=== PATIENT | female | born 1950 | race Caucasian/White ===

== ENCOUNTER 2021-09-21 18:16 | Observation (INO) | payer MEDICARE, SELFPAY ==
[2021-09-21 18:27] VITALS: BMI 23.8
[2021-09-21 18:35] VITALS: BP 146/74; PULSE 81; RESP 17; TEMP 36.8; O2SAT 100
--- NOTE | 2021-09-21 18:36 | P.HP_ITS ---
History of Present Illness History of Present Illness Date Patient Seen: 09/21/21 Time Patient Seen: 18:36 Chief complaint: Vaginal Bleeding Narrative: Patient is a 71-year-old 2 para 2 who called the office earlier this afternoon with brisk vaginal bleeding where she was soaking a pad in 2 minutes. 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 She is scheduled to see [facility] on September 25, 2021 in [place]. Hemoglobin in the office 9.0. Only previous hematocrit that I can find shows 36. Patient History Medical History (Updated 09/21/21 @ 18:34 by Deepa Henriquez MD) History of hepatitis A History of renal stone HSV (herpes simplex virus) infection Vitiligo Surgical History (Updated 09/21/21 @ 18:43 by Deepa Henriquez MD) Hx laparoscopic cholecystectomy S/P tonsillectomy and adenoidectomy S/P wisdom tooth extraction Status post appendectomy Family & Social History Family History (Updated 09/09/21 @ 01:[address] MD) Father Cancer Tobacco & Substance use: Smoking Status Former smoker Meds Home Medications and Allergies Home Medications Medication Instructions Recorded Confirmed Type No Known Home Medications 09/04/21 09/04/21 History Allergies Allergy/AdvReac Type Severity Reaction Status Date / Time No Known Drug Allergies Allergy Unverified 09/04/21 14:09 Exam Narrative Exam Narrative: Generally: Pale elderly female, no acute distress Lungs: Clear to auscultation bilaterally Cardiovascular: Regular rate and rhythm Abdomen: Well-healed right upper quadrant scars. No masses palpable. No hepatosplenomegaly. External genitalia: Old blood Vagina: Large amount of clot and brisk bleeding coming from the cervix Cervix: Irregular, friable, with brisk bleeding Procedure: Large swabs were applied to the cervix and then Monsel's was applied. The bleeding slowed and then the vagina was packed with 1 in iodoform gauze that was dipped in Monsel solution. The bleeding stopped. Extremities: No edema Assessment & Plan Assessment & Plan narrative: Assessment: 71-year-old 2 para 2 with active bleeding from the cervix Cervical cancer Plan: Observation Covarrubias catheter The packing in place for at least 12 hours COVID-19 COVID-19 status: Result pending Time Spent With Patient Time with patient: 50 to 69 minutes with 50% spent counseling/coordinating care Critical Care time: I spent a total of [] minutes of critical care time on this patient's care today; this time is exclusive of procedural time.
--- NOTE | 2021-09-21 19:34 | PC.NURSE ---
182 71 y/o female admitted from 's office with vaginal CA, with vaginal packing, patient alert and oriented x3, denies any pain or discomfort,does not recall when she last had a bowel movement,lungs clear to auscultation,pedal pulse pres
--- NOTE | 2021-09-21 19:38 | CM.MNRNOTE ---
71 y/o female admitted for observation,alert and oriented x3,denies any pain or discomfort,came from 's office after vaginal packing r/t to vaginal CA and bleeding.Bilateral lungs clear to auscultation, pedal pulse present, no edema noted,does not remember when she last has a bowel movemnet, Has Hx of gallbladder surgery, has arthritis.VSS. O2 sat 100%.VSS.Covarrubias catheter inserted with urine return,approximately 100 cc yellow urine,SCD's in place.Call light beside her,reminded her to call as needed. Gave report to RAMA Jackson.
[2021-09-21 20:11] LABS: COVID19 -Nasal RAPID Negative (Negative)
[2021-09-21 20:26] VITALS: BP 120/72; PULSE 86; RESP 18; TEMP 36.7; O2SAT 98
[2021-09-21 21:14] LABS: Add Manual Diff / Slide Review NO; Basophils Absolute Auto 100 /uL (0-100); Basophils Percent Auto 1.2 % (0-2); Eosinophils Absolute Auto 200 /uL (0-450); Eosinophils Percent Auto 2.7 % (2-4); Hematocrit 29.5 % (36-46); Hemoglobin 9.9 g/dL (12.0-16.0); Lymphocytes Absolute Auto 1800 /uL (1100-4500); Mean Corpuscular HGB Conc 33.7 % (30-36); Mean Corpuscular Hemoglobin 24.8 PG (26-34); Mean Corpuscular Volume 73.7 fL (80-100); Monocytes Absolute Auto 600 /uL (0-900); Monocytes Percent Auto 7.4 % (3-14); Neutrophils Absolute Auto 5900 /uL (1500-7000); Neutrophils Percent Auto 67.7 % (50-75); Platelet Count 226 X10^3/uL (150-400); Red Blood Cell Count 4.01 X10^6/uL (4.0-5.2); Red Cell Distribution Width 15.8 % (11.6-14.8); White Blood Cell Count 8.6 X10^3/uL (4.5-11.0)
[2021-09-21 23:20] VITALS: BP 128/65; PULSE 82; RESP 18; TEMP 36.7; O2SAT 97
[2021-09-22 04:42] VITALS: BP 119/61; PULSE 86; RESP 18; TEMP 37.2; O2SAT 97
--- NOTE | 2021-09-22 07:32 | PC.NURSE ---
received report from Renetta ONTIVEROS traveler-pt stable alba in place-no IV-no pain-Dr. Henriquez to come this AM and remove vaginal packing and DC-gen diet labs drawn last night WNL
[2021-09-22 10:40] VITALS: BP 110/65; PULSE 91; RESP 18; TEMP 37.1; O2SAT 95
--- NOTE | 2021-09-22 10:42 | PC.NURSE ---
0941-spoke w Dr. Henriquez via phone who will be on unit later this AM to assess pt and remove packing
[2021-09-22 14:00] VITALS: BP 124/70; RESP 19; TEMP 36.9
--- NOTE | 2021-09-22 14:10 | PC.NURSE ---
spoke to Dr. Henriquez POC for pt to have alba out removed @0150 & walk in the room-pt has been up 2 times for 20 minutes each with scant light pink bleeding-tires easily-pt to call her son for ride home-This RN explained if any bleeding occurs to come back to hospital/notify construction equipment operator OB provider. All vitals WNL
[2021-09-22 14:45] LABS: Hematocrit 28.9 % (36-46); Hemoglobin 9.8 g/dL (12.0-16.0)
--- NOTE | 2021-09-22 15:57 | PC.NURSE ---
orthostatic pressures @1500 lying 136/69 [id number] 129/68 P97 Sitting 137/69 P105 Temp 98.4 temporal-reported to Dr. Henriquez-Pt OK to [facility]-pt in room dressed waiting for her son to pick her up
--- NOTE | 2021-09-23 10:26 | P.DS_ITS ---
History of Present Illness History of Present Illness Date Patient Seen: 09/22/21 Time Patient Seen: 13:00 Chief complaint: Vaginal Bleeding Narrative: Patient is a 71-year-old 2 para 2 who called the office yesterday afternoon with brisk vaginal bleeding where she was soaking a pad in 2 minutes. She had had cervical biopsies done on September 04, 2021 which showed carcinoma in Situ and invasive squamous cell carcinoma of the cervix. She is scheduled to see [facility] on September 25, 2021 in [place]. Patient was packed with iodoform Nu Gauze that was coated with Monsel's solution. The packing was left in overnight. The packing was removed this morning and there was no excessive bleeding on packing. Patient set up in bed and there was no significant bleeding. She walked around in the room and went to the bathroom and there was no significant bleeding. The Covarrubias catheter was removed. The patient was discharged home to a [facility] until her appointment on September 25, 2021 with Rosendo Rizo. Discharge Providers Provider Date of admission: 09/21/21 18:16 Discharge Date: 09/22/21 Primary care physician: Doctor Pascual MD Discharge provider: Deepa Henriquez MD Summary Hospital Course Discharge Diagnosis: Brisk vaginal bleeding Cervical cancer Vaginal packing Hospital Course: Patient is a 71-year-old who presented to the office on September 21, 2021 after calling with brisk vaginal bleeding. She was having significant vaginal bleeding from the cervix. The vagina was packed with Nu gauze coated with Monsel's solution. The patient was held in observation overnight. The next day the packing was removed and she was able to ambulate without any bleeding. She was discharged home on [facility] until her appointment with [facility] on September 25, 2021. Warning signs of what to call for or come back for were reviewed with the patient. Status at Discharge Cognitive/behavioral status at discharge: oriented Functional status at discharge: uses cane/walker Overall status at discharge: patient is progressing back to baseline Time Spent with Patient Time spent: Less than 30 minutes Exam Vital Signs (past 8 hours): Oxygen Flow Rate 0 Narrative Exam Narrative: Generally: Patient lying in bed, on her right side, no acute distress Lungs: Clear to auscultation bilaterally Cardiovascular: Regular rate and rhythm Abdomen: Soft, good bowel sounds External genitalia: Small amount of old blood Extremities: No edema Objective Labs Result Diagrams: 09/22/21 14:31 Labs: Laboratory Results - last 24 hr 09/22/21 14:31 Hgb 9.8 L Hct 28.9 L PFSH Medical History (Updated 09/22/21 @ 12:04 by Deepa Henriquez MD) History of hepatitis A History of renal stone HSV (herpes simplex virus) infection Osteoarthritis Vitiligo Surgical History (Updated 09/21/21 @ 18:43 by Deepa Henriquez MD) Hx laparoscopic cholecystectomy S/P tonsillectomy and adenoidectomy S/P wisdom tooth extraction Status post appendectomy Family History (Updated 09/09/21 @ 01:[address] MD) Father Cancer Social History marital status: details: with dementia household members: spouse education level: other (business school) Smoking Status: Former smoker Discharge Assessment & Plan Assessment and Plan Assessment: Assessment: 71-year-old with cervical cancer with bleeding from the cervix Status post packing and then removal of packing Scheduled for [facility] repairer oncology visit on September 25, 2021 Plan of Treatment: Discharge to home Warning signs reviewed with the patient Patient to be at a modified bedrest until her appointment on September 25, 2021 She is to call with bleeding more than light She is to go to the nearest emergency room if soaking a pad in less than 30 minute Discharge Plan Discharge Plan Patient Disposition: Home Provider Discharge Comment: Call with bleeding where she is soaking through so mething in less than an hour She is instructed to go to the nearest hospital if she is bleeding heavily in soaking something in a few minutes Discharge orders & Medications Prescriptions: No Action No Known Home Medications Follow up/Referrals: Deepa Henriquez MD [Physician] - As previously scheduled Diet/Activity/Treatments Diet: Regular Diet comment: general Diet Activity: Modified bedrest No heavy lifting Skin/Wound/Dressing Care Report to your healthcare provider any signs of infection, such as:: chills, fever, increased pain and unusual drainage Visit Report/Discharge Packet Instructions: DI for Vaginal Bleeding Discharge Data Primary Care Provider: Miscellaneous,Doctor Attending Provider: Deepa Henriquez Quality VTE Deep Vein Thrombosis/Pulmonary Embolism Present on Admission: No
== END 2021-09-22 16:36 | disposition home or self-care (01) ==
PROVIDERS: Admitting Provider Obstetrics & Gynecology; Referring Provider Obstetrics & Gynecology; Visit Provider Obstetrics & Gynecology
DX: C53.9 Malignant neoplasm of cervix uteri, unspecified (principal); N88.8 Other specified noninflammatory disorders of cervix uteri
CPT/HCPCS: 36415; 85014; 85018; 85025; 87635; 99217; 99218; C9803; G0378; G0379